=== PATIENT | male | born 1965 ===

== ENCOUNTER 2022-04-28 07:57 | Observation (INO) | payer BC ==
[2022-04-09 14:32] VITALS: BMI 36.6
[2022-04-28] MEDS ORDERED: Oxymetazoline HCl 0.05% ( 15 ML ) ONE (08:30)
[2022-04-28] MEDS ORDERED: Midazolam HCl 2 mg/2 ml Vial ONE (09:19)
[2022-04-28] MEDS ORDERED: Rocuronium Bromide 10 MG/ML (10ML VIAL) ONE (09:19)
[2022-04-28] MEDS ORDERED: Dexamethasone 4 mg/ml Vial ONE (09:19)
[2022-04-28] MEDS ORDERED: PROPOFOL 20 ML ONE ×2 (09:19→10:56)
[2022-04-28] MEDS ORDERED: Ondansetron PF 4 MG/2 ML Vial ONE (09:19)
[2022-04-28] MEDS ORDERED: Lidocaine 1% PF 5 ML VIAL ONE (09:19)
[2022-04-28] MEDS ORDERED: Fentanyl 100 MCG/2 ML VIAL ONE ×2 (09:20→11:32)
[2022-04-28] MEDS ORDERED: Glycopyrrolate 0.2 MG/ML 5 ML SYRINGE ONE (09:20)
[2022-04-28] MEDS ORDERED: CEFAZOLIN 1 GM VIAL ONE (09:34)
[2022-04-28] MEDS ORDERED: Mupirocin 2% Ointment 22 GM Tube ONE (09:34)
[2022-04-28] MEDS ORDERED: Lidocaine 1% w/Epinephrine 1:100K 20 ML VIAL ONE (10:05)
[2022-04-28] MEDS ORDERED: Labetalol HCl 100 MG/20 ML VIAL ONE (10:08)
[2022-04-28] MEDS ORDERED: Ondansetron PF 4 MG/2 ML Vial IVP PRN (10:09)
[2022-04-28] MEDS ORDERED: Acetaminophen 325 MG TAB PO PRN (10:09)
[2022-04-28] MEDS ORDERED: PHENYLEPHRINE-NS 100 MCG/ML 10 ML SYRINGE ONE (10:24)
[2022-04-28] MEDS: HYDROcodone/Acetaminophen 5/325 mg Tablet PO PRN ×3 (12:12→20:09)
[2022-04-28] MEDS ORDERED: Dextrose 50% Abboject 50 ML SYRINGE IVP PRN (12:15)
[2022-04-28] MEDS ORDERED: Dextrose 5% in Water 1,000 ML IV PRN (12:15)
[2022-04-28] MEDS: Insulin Regular 300 UNITS/3 ML VIAL SC PRN ×2 (15:51→20:07)
[2022-04-28] MEDS: metFORMIN 500 MG TAB PO SCH (15:51)
[2022-04-28] MEDS: Benzonatate 100 MG CAP PO SCH ×2 (16:22→22:19)
[2022-04-29] MEDS: Insulin Regular 300 UNITS/3 ML VIAL SC PRN (05:19)
[2022-04-29] MEDS: Benzonatate 100 MG CAP PO SCH ×2 (05:19→09:25)
[2022-04-29] MEDS: HYDROcodone/Acetaminophen 5/325 mg Tablet PO PRN (05:19)
[2022-04-29] MEDS ORDERED: Dexamethasone 20 MG/5 ML VIAL SLOW IVP SCH (06:00)
[2022-04-29] MEDS: metFORMIN 500 MG TAB PO SCH (07:59)
[2022-04-29 08:31] VITALS: BP 152/82; TEMP 98.1
[2022-04-29] MEDS ORDERED: Venlafaxine HCl XR 75 MG CAP PO SCH (09:00)
[2022-04-29] MEDS ORDERED: Glimepiride 4 MG TAB PO SCH (09:00)
[2022-04-29] MEDS ORDERED: Atorvastatin Calcium 40 MG TAB PO SCH (09:00)
[2022-04-29] MEDS ORDERED: Lantus 1000 UNITS/10 ML VIAL SC SCH (21:00)
== END 2022-04-29 09:35 | disposition home or self-care (01) ==
LOC: CSHSDC 07:57 → INTOOBSV 10:50 → CSHTELE 10:50
PROVIDERS: ADMIT Otolaryngology Plastic Surgery within the Head & Neck; ATTEND Otolaryngology Plastic Surgery within the Head & Neck
PROC: 09SM0ZZ Reposition Nasal Septum, Open Approach (ICD-10-PCS; principal; 2022-04-28)
PROC: 09TL0ZZ Resection of Nasal Turbinate, Open Approach (ICD-10-PCS; 2022-04-28)
DX: J34.2 Deviated nasal septum (principal); J34.3 Hypertrophy of nasal turbinates; K13.79 Other lesions of oral mucosa; G47.33 Obstructive sleep apnea (adult) (pediatric); J34.89 Other specified disorders of nose and nasal sinuses; Z85.828 Personal history of other malignant neoplasm of skin; Z79.2 Long term (current) use of antibiotics; I10 Essential (primary) hypertension; E11.9 Type 2 diabetes mellitus without complications; F41.9 Anxiety disorder, unspecified; F32.A Depression, unspecified; Z79.4 Long term (current) use of insulin; Z79.84 Long term (current) use of oral hypoglycemic drugs; Z79.899 Other long term (current) drug therapy; Z87.891 Personal history of nicotine dependence; Z98.890 Other specified postprocedural states
CPT/HCPCS: 36416; 94760; G0378; J0690; J1100; J1815; J2250; J2405; J2704; J3010